=== PATIENT | male | born 1970 | race Caucasian/White ===

== ENCOUNTER → 2022-03-11 11:24 | Outpatient (BNVA) | payer MEDICARE, MEDICAID, SELFPAY | PROVIDERS: PCP Student in an Organized Health Care Education/Training Program; Referring Provider Nurse Practitioner Family; Visit Provider Internal Medicine | DX: R10.9 Unspecified abdominal pain (principal); R14.0 Abdominal distension (gaseous); K59.00 Constipation, unspecified; D89.40 Mast cell activation, unspecified | CPT/HCPCS: 99202 ==